=== PATIENT | female | born 1995 | race African-American/Black ===

== ENCOUNTER 2017-11-09 08:54 | Emergency (ER) | payer MEDICAID ==
[2017-11-09] MEDS ORDERED: ACETAMINOPHEN 325 MG TABLET PO ONE (09:09)
[2017-11-09] MEDS ORDERED: IBUPROFEN 600 MG TABLET PO ONE (09:09)
--- NOTE | 2017-11-09 09:09 | ER Document Report ---
HPI - HPI Patient complains to provider of: Fever body aches cough Onset: Other - Saturday Quality of pain: Achy Pain Level: 5 Context: 22-year-old nonsmoker female had a cough since Saturday. Yesterday after school she went to sleep and felt a lot worse with generalized body aches. She woke up with a fever. No shortness of breath or chest pain. Associated symptoms are nasal congestion sore throat. No nausea vomiting or diarrhea. No dysuria. No abdominal pain. Did not get a flu shot. Associated Symptoms: None Exacerbated by: Denies Relieved by: Denies Similar symptoms previously: No Recently seen / treated by doctor: No - ROS ROS below otherwise negative: Yes Systems Reviewed and Negative: Yes All other systems reviewed and negative - REPRODUCTIVE LMP: Current Past Medical History - General Information source: Patient - Social History Smoking Status: Never Smoker Frequency of alcohol use: None Drug Abuse: None Occupation: School and [employer] Lives with: Family Family History: Reviewed & Not Pertinent - Medical History Medical History: Negative Surgical Hx: Negative - Immunizations Immunizations up to date: Yes Vertical Provider Document - CONSTITUTIONAL Agree With Documented VS: Yes Exam Limitations: No Limitations - INFECTION CONTROL TRAVEL OUTSIDE OF THE [place] IN LAST 30 DAYS: No - HEENT HEENT: Normocephalic, Pharyngeal Erythema. negative: Conjuctival Injection, Tympanic Membrane Red, Tympanic Membrane Bulging - NECK Neck: Supple. negative: Lymphadenopathy-Left, Lymphadenopathy-Right - RESPIRATORY Respiratory: No Respiratory Distress, Rhonchi - Mild coarse expiratory bilateral. negative: Rales, Wheezing O2 Sat by Pulse Oximetry: 99 - CARDIOVASCULAR Cardiovascular: Regular Rate, Regular Rhythm - MUSCULOSKELETAL/EXTREMETIES Musculoskeletal/Extremeties: FRANCINE BURNS - NEURO Level of Consciousness: Awake, Alert - DERM Integumentary: Warm, Dry, No Rash Course - Re-evaluation Re-evalutation: 11/09/17 10:16 Prelim x-ray read by me is negative. 11/09/17 13:21 final xray is negative per rad. - Vital Signs Vital signs: Temp Pulse Resp BP Pulse Ox 101.5 F H 98 18 113/88 H 99 11/09/17 08:59 11/09/17 08:59 11/09/17 08:59 11/09/17 08:59 11/09/17 08:59 Discharge - Discharge Clinical Impression: Cough, influenza type illness Fever Qualifiers: Fever type: due to other condition Qualified Code(s): R50.81 - Fever presenting with conditions classified elsewhere Condition: Good Disposition: HOME, SELF-CARE Instructions: Acetaminophen, Anti-Inflammatory Medication ([facility]), Fever ([facility]), Influenza ([facility]) [id number] Additional Instructions: Rest Plenty of fluids Return to the emergency room if worse Tylenol for fever Motrin for pain and body aches Prescriptions: Ibuprofen [Motrin 800 mg Tablet] 800 mg PO Q8HP PRN #30 tablet PRN Reason: Forms: Return to Work
--- NOTE | 2017-11-09 10:29 | RADIOLOGY REPORT (SQ) ---
EXAM DESCRIPTION: CHEST PA/LAT COMPLETED DATE/TIME: 11/09/2017 10:15 am REASON FOR STUDY: Cough and fever COMPARISON: None. EXAM PARAMETERS: NUMBER OF VIEWS: two views TECHNIQUE: Digital Frontal and Lateral radiographic views of the chest acquired. RADIATION DOSE: NA LIMITATIONS: none FINDINGS: LUNGS AND PLEURA: No opacities, masses or pneumothorax. No pleural effusion. MEDIASTINUM AND HILAR STRUCTURES: No masses or contour abnormalities. HEART AND VASCULAR STRUCTURES: Heart normal size. No evidence for failure. BONES: No acute findings. HARDWARE: None in the chest. OTHER: No other significant finding. IMPRESSION: NO SIGNIFICANT RADIOGRAPHIC FINDING IN THE CHEST. TECHNICAL DOCUMENTATION: JOB ID: [id number] [employer]- All Rights Reserved
[2017-11-09 10:58] VITALS: BP 133/74
== END 2017-11-09 10:45 | disposition home or self-care (01) ==
LOC: ER 08:54
DX: R05 Cough (principal); R50.81 Fever presenting with conditions classified elsewhere; M79.1 Myalgia
CPT/HCPCS: 71046; 99283

== ENCOUNTER 2019-05-16 16:56 | Emergency (ER) | payer SELFPAY ==
[2019-05-16] MEDS ORDERED: PYRIDOXINE HCL 50 MG TABLET PO ONE (17:52)
--- NOTE | 2019-05-16 17:53 | ER Document Report ---
ED GI/ - General Chief Complaint: Abdominal Pain Stated Complaint: ABDOMINAL PAIN,NAUSEA Time Seen by Provider: 05/16/19 17:53 Primary Care Provider: [facility] [Provider Group] - Follow up as needed Mode of Arrival: Ambulatory Information source: Patient Notes: 24-year-old female presented to ED for complaint of right pelvic pain and abdominal cramping. She said her last menstrual period was in early March and she had a positive home test. She states she has been nausea and vomited one time today. Pain started yesterday. Patient is alert oriented respirations regular and unlabored speaking in full sentences. States she is in no acute distress at this time she is nontoxic in appearance. TRAVEL OUTSIDE OF THE U.S. IN LAST 30 DAYS: No - HPI Patient complains to provider of: Abdominal pain, Pelvic pain, . No: Vaginal bleeding, Vaginal discharge Timing/Duration: Better Quality of pain: Cramping Severity at maximum: Mild Severity in ED: Mild Pain Level: 1 Location: Pelvis Vaginal bleeding (Compared to normal period): None LMP: Early March : 1 Para: 0 Sexual history: Active Associated symptoms: Nausea - X1, Vomiting, Other - Pelvic pain abdominal pain. denies: Vaginal discharge Exacerbated by: Denies Relieved by: Denies Similar symptoms previously: No Recently seen / treated by doctor: No - Related Data Allergies/Adverse Reactions: No Known Allergies Allergy (Verified 05/16/19 16:58) Past Medical History - General Information source: Patient - Social History Smoking Status: Never Smoker Frequency of alcohol use: None Drug Abuse: Marijuana Occupation: [employer] Family History: Reviewed & Not Pertinent Patient has suicidal ideation: No Patient has homicidal ideation: No - Past Medical History Cardiac Medical History: Reports: None Pulmonary Medical History: Reports: None EENT Medical History: Reports: None Neurological Medical History: Reports: None Endocrine Medical History: Reports: None Renal/ Medical History: Reports: None Malignancy Medical History: Reports: None GI Medical History: Reports: Hx Gastritis Musculoskeletal Medical History: Reports None Skin Medical History: Reports None Psychiatric Medical History: Reports: None Traumatic Medical History: Reports: None Infectious Medical History: Reports: None Surgical Hx: Negative Past Surgical History: Reports: None - Immunizations Immunizations up to date: Yes Review of Systems - Review of Systems Constitutional: No symptoms reported EENT: No symptoms reported Cardiovascular: No symptoms reported Respiratory: No symptoms reported Gastrointestinal: Abdominal pain, Nausea, Vomiting Genitourinary: No symptoms reported Female Genitourinary: Musculoskeletal: No symptoms reported Skin: No symptoms reported Hematologic/Lymphatic: No symptoms reported Neurological/Psychological: No symptoms reported -: Yes All other systems reviewed and negative Physical Exam - Vital signs Vitals: Temp Pulse Resp BP Pulse Ox 97.4 F 72 16 136/77 H 97 05/16/19 17:01 05/16/19 17:01 05/16/19 17:01 05/16/19 17:01 05/16/19 17:01 Interpretation: Normal - General General appearance: Appears well, Alert - HEENT Head: Normocephalic, Atraumatic Eyes: Normal Pupils: PERRL - Respiratory Respiratory status: No respiratory distress Chest status: Nontender Breath sounds: Normal Chest palpation: Normal - Cardiovascular Rhythm: Regular Heart sounds: Normal auscultation Murmur: No - Abdominal Inspection: Normal Distension: No distension Bowel sounds: Normal Tenderness: Tender - Right pelvic Organomegaly: No organomegaly - Back Back: Normal, Nontender - Extremities General upper extremity: Normal inspection, Nontender, Normal color, Normal ROM, Normal temperature General lower extremity: Normal inspection, Nontender, Normal color, Normal ROM, Normal temperature, Normal weight bearing. No: Francisco's sign - Neurological Neuro grossly intact: Yes Cognition: Normal Orientation: AAOx4 [place] Coma Scale Eye Opening: Spontaneous [place] Coma Scale Verbal: Oriented Lauren Coma Scale Motor: Obeys Commands [place] Coma Scale Total: 15 Speech: Normal Motor strength normal: LUE, RUE, LLE, RLE Sensory: Normal - Psychological Associated symptoms: Normal affect, Normal mood - Skin Skin Temperature: Warm Skin Moisture: Dry Skin Color: Normal Course - Re-evaluation Re-evalutation: 05/17/19 01:38 Labs and ultrasound discussed with patient and written report of labs and ultrasound given to patient. Patient was instructed to follow-up with [facility] and prior primary care doctor. Patient verbalized understanding and agreement with treatment plan. Patient was instructed to get vitamin B6 and vitamins [id number] and start them. Patient was discharged home - Vital Signs Vital signs: Temp Pulse Resp BP Pulse Ox 98.4 F 76 18 142/80 H 99 05/16/19 19:00 05/16/19 19:00 05/16/19 19:00 05/16/19 19:00 05/16/19 19:00 - Laboratory Result Diagrams: 05/16/19 18:02 05/16/19 18:02 Laboratory results interpreted by me: 05/16/19 05/16/19 05/16/19 18:02 18:02 18:02 RDW 14.4 H Sodium 136.6 L Beta HCG, Quant 59757.00 H Urine Ascorbic Acid 40 H - Diagnostic Test Radiology reviewed: Image reviewed, Reports reviewed Discharge - Discharge Clinical Impression: Pelvic pain affecting in first trimester, antepartum, Nausea and vomiting during Condition: Stable Disposition: HOME, SELF-CARE Instructions: Family Physicians / Practices, [facility] [place] Additional Instructions: Pelvic Pain in Lower abdominal pain during can have many causes. We look for serious causes such as appendicitis, tubal , miscarriage, placental separation, or urinary tract infection. Less serious causes of pain include corpus luteum cyst (ovarian cyst of ) or stretching of the pelvic tissues by the enlarging uterus. Sometimes the pain comes from the bowels. If no specific cause for the pain is found, we attribute the pain to stretching of the uterine ligaments. This is called "round ligament strain." It is not dangerous. Just rest until the pain goes away. Call us or come back for reexamination if any problems occur, such as: (1) Pain that becomes more severe, steady, or becomes concentrated in one sp ecific area. Also, pain that is more severe with movement or coughing. (2) Vomiting that persists or becomes more frequent. (3) Blood in the vomitus, urine, or bowel movements. Blood in the stool may have a tarry or black appearance. (4) Shaking chills or fever greater than 100 degrees. (5) The abdomen becomes more distended or swollen. (6) Bowel movements cease. (7) Vaginal bleeding. Acetaminophen Acetaminophen may be taken for pain relief or fever control. It's much safer than aspirin, offering a wider range of "safe" dosages. It is safe during . Some brand names are Tylenol, Panadol, Datril, Anacin 3, Tempra, and Liquiprin. Acetaminophen can be repeated every four hours. The following are maximum recommended dosages: WEIGHT Dose Drops Elixir Chewable(80mg) (LBS.) drprs=droppers tsp=teaspoon 6 40 mg .4 ml (1/2) 6-11 80 mg .8 ml (full) 1/2 tsp 1 tab 12-16 120 mg 1 1/2 drprs 3/4 tsp 1 1/2 tabs 17-23 160 mg 2 drprs 1 tsp 2 tabs 24-30 240 mg 3 drprs 1 1/2 tsp 3 tabs 30-35 320 mg 2 tsp 4 tabs 36-41 360 mg 2 1/4 tsp 4 1/2 tabs 42-47 400 mg 2 1/2 tsp 5 tabs 48-53 480 mg 3 tsp 6 tabs 54-59 520 mg 3 1/4 tsp 6 1/2 tabs 60-64 560 mg 3 1/2 tsp 7 tabs 65-70 600 mg 3 3/4 tsp 7 1/2 tabs 71-76 640 mg 4 tsp 8 tabs 77-82 720 mg 4 1/2 tsp 9 tabs 83-88 800 mg 5 tsp 10 tabs >89 pounds or adults 650 mg to 900 mg Acetaminophen can be repeated every four hours. Maximum daily dose not to exceed 4000 mg. These maximum recommended dosages are slightly higher than the dosages written on the product container, but these dosages are very safe and well below the toxic dosage for acetaminophen. Please use vitamin B6 and Unisom for your induced nausea. Please star t your vitamins right away. Schedule an appointment with your primary care doctor and or an [facility] to get started on care. Please be sure that you eat a full balanced diet and drink plenty of fluids. As I have discussed with you you are 10 weeks 6 days according to ultrasound y our heart tone was 169 and I did show you a picture of your fetus. FOLLOW-UP CARE: If you have been referred to a physician for follow-up care, call the physicians office for an appointment as you were instructed or within the next two days. If you experience worsening or a significant change in your symptoms, notify the physician immediately or return to the Emergency Department at any time for re-evaluation. Forms: Elevated Blood Pressure, Smoking Cessation Education, Return to Work Referrals: [facility] [Provider Group] - Follow up as needed
[2019-05-16] MEDS ORDERED: PYRIDOXINE HCL INJ 100 MG/1 ML VIAL IM ONE (18:07)
[2019-05-16 18:22] LABS: ABSOLUTE BASOPHILS # (AUTO) 0.1 10^3/uL (0.0-0.2); ABSOLUTE LYMPHOCYTES (AUTO) 1.5 10^3/uL (0.5-4.7); ABSOLUTE MONOCYTES (AUTO) 0.8 10^3/uL (0.1-1.4); ABSOLUTE NEUT (AUTO) 6.7 10^3/uL (1.7-8.2); BASOPHILS % (AUTO) 0.6 % (0-2); EOSINOPHILS % (AUTO) 0.2 % (0-6); HEMOGLOBIN 14.5 g/dL (12.0-15.5); LYMPHOCYTES % (AUTO) 16.3 % (13-45); MEAN CORPUSCULAR HEMOGLOBIN 29.4 pg (27.0-33.4); MEAN CORPUSCULAR HGB CONC 33.8 g/dL (32.0-36.0); MEAN CORPUSCULAR VOLUME 87 fl (80-97); MONOCYTES % (AUTO) 8.9 % (3-13); PLATELET COUNT 202 10^3/uL (150-450); RED BLOOD COUNT 4.94 10^6/uL (3.72-5.28); RED CELL DISTRIBUTION WIDTH 14.4 % (11.5-14.0); TOTAL CELLS COUNTED % (AUTO) 100 %; WHITE BLOOD COUNT 9.1 10^3/uL (4.0-10.5)
[2019-05-16 18:23] LABS: APPEARANCE,URINE SLIGHTLY-CLOUDY; BILIRUBIN,URINE NEGATIVE (NEGATIVE); COLOR,URINE YELLOW; GLUCOSE, URINE NEGATIVE (NEGATIVE); KETONES,URINE NEGATIVE (NEGATIVE); LEUKOCYTE ESTERASE,URINE NEGATIVE (NEGATIVE); NITRITE,URINE NEGATIVE (NEGATIVE); PROTEIN,URINE NEGATIVE (NEGATIVE); URINE SPECIFIC GRAVITY 1.025; UROBILINOGEN,URINE NEGATIVE mg/dL (<2.0)
[2019-05-16] MEDS ORDERED: PYRIDOXINE HCL INJ 100 MG/1 ML VIAL ONE (18:24)
[2019-05-16 18:36] LABS: ALANINE AMINOTRANSFERASE 12 U/L (9-52); ALKALINE PHOSPHATASE 62 U/L (38-126); ANION GAP 9 (5-19); ASPARTATE AMINO TRANSFERASE 14 U/L (14-36); BILIRUBIN,DIRECT 0.2 mg/dL (0.0-0.4); BILIRUBIN,TOTAL 0.2 mg/dL (0.2-1.3); BLOOD UREA NITROGEN 11 mg/dL (7-20); CALCIUM 9.9 mg/dL (8.4-10.2); CARBON DIOXIDE 25 mmol/L (22-30); CHLORIDE 103 mmol/L (98-107); GLUCOSE 92 mg/dL (75-110); POTASSIUM 4.8 mmol/L (3.6-5.0); TOTAL PROTEIN 7.4 g/dL (6.3-8.2)
--- NOTE | 2019-05-16 19:09 | RADIOLOGY REPORT (SQ) ---
EXAM DESCRIPTION: U/S OB TRANSVAGINAL W/O DOP COMPLETED DATE/TIME: 05/16/2019 6:59 pm REASON FOR STUDY: pelvic pain COMPARISON: None. TECHNIQUE: Transvaginal static and realtime grayscale images acquired of the pelvis. Additional [place] cted spectral and color Doppler images recorded. All images stored on PACs. bHCG: Pending. CLINICAL DATES: 7 weeks 5 days LIMITATIONS: None. FINDINGS: FETUS: Single Living intrauterine . ULTRASOUND EGA: 10 weeks 6 days ULTRASOUND JABIER: 12/06/2019 EFW: Not applicable less than 20 weeks. CRL: 3.9 cm FHR: 169 beats per minute. SURVEY: Too early to assess. AMNIOTIC FLUID: Adequate amount. PLACENTA: Not yet developed due to early gestation. SUBCHORIONIC BLEED: No SIZE OF BLEED: Not applicable. UTERUS: No masses. No anomalies. CERVICAL LENGTH: 3.1 cm Closed. RIGHT ADNEXA: Normal ovary with normal vascular flow. No adnexal free fluid. No adnexal masses. LEFT ADNEXA: Normal ovary with normal vascular flow. No adnexal free fluid. 2 cm corpus luteum. FREE FLUID: None. OTHER: No other significant finding. IMPRESSION: LIVING INTRAUTERINE . EGA 10 weeks 6 days Trimester of : First trimester - 0 to 13 weeks. TECHNICAL DOCUMENTATION: JOB ID: [id number] [employer]- All Rights Reserved rev-03/07 Reading location - IP/workstation name: [email or web address]
[2019-05-16 19:59] VITALS: BP 142/80
== END 2019-05-16 19:55 | disposition home or self-care (01) ==
LOC: ER 16:56
DX: O26.891 Other specified pregnancy related conditions, first trimester (principal); R10.2 Pelvic and perineal pain; O21.9 Vomiting of pregnancy, unspecified; O99.321 Drug use complicating pregnancy, first trimester; F12.10 Cannabis abuse, uncomplicated; Z3A.01 Less than 8 weeks gestation of pregnancy; Z87.19 Personal history of other diseases of the digestive system
CPT/HCPCS: 99284; 96372; 36415; 87086; 84702; 85025; 80053; 81001; 76817; J3415

== ENCOUNTER 2019-11-30 19:44 | Emergency (ER) | payer MEDICAID ==
[2019-11-30] MEDS ORDERED: ACETAMINOPHEN 325 MG TABLET PO ONE (20:20)
[2019-11-30] MEDS ORDERED: RINGERS SOLUTION,LACTATED 1,000 ML IV ONE (20:21)
--- NOTE | 2019-11-30 20:22 | ER Document Report ---
ED Medical Screen (RME) - General Stated Complaint: FLU SYMPTOMS Time Seen by Provider: 11/30/19 20:14 Mode of Arrival: Ambulatory Information source: Patient Notes: Patient presents complaining of cough body aches for the past 2 days. Patient is currently 39 weeks G1, P0. Patient denies any abdominal pain vaginal bleeding or urinary symptoms. Patient does complain of lower back pain and decreased movement at this time. Patient was taking livw-ctq-[id number] cold medicine earlier today. Patient denies any complications during the thus far. I have greeted and performed a rapid initial assessment of this patient. A comprehensive ED assessment and evaluation of the patient, analysis of test results and completion of the medical decision making process will be conducted by additional ED providers. TRAVEL OUTSIDE OF THE U.S. IN LAST 30 DAYS: No - Related Data Allergies/Adverse Reactions: No Known Allergies Allergy (Verified 11/30/19 20:14) Past Medical History Renal/ Medical History: Denies: Hx Peritoneal Dialysis GI Medical History: Reports: Hx Gastritis - Immunizations Immunizations up to date: Yes Physical Exam - Vital signs Vitals: Temp Pulse Resp BP Pulse Ox 100.2 F 135 H 24 H 132/83 H 97 11/30/19 19:56 11/30/19 19:56 11/30/19 19:56 11/30/19 19:56 11/30/19 19:56 - Respiratory Respiratory status: Tachypnea - Cardiovascular Rhythm: Tachycardia Heart sounds: S1 appreciated, S2 appreciated Course - Vital Signs Vital signs: Temp Pulse Resp BP Pulse Ox 100.2 F 135 H 24 H 132/83 H 97 11/30/19 19:56 11/30/19 19:56 11/30/19 19:56 11/30/19 19:56 11/30/19 19:56
--- NOTE | 2019-11-30 21:03 | RADIOLOGY REPORT (SQ) ---
EXAM DESCRIPTION: XR CHEST 2 VIEWS COMPLETED DATE/TME: 11/30/2019 20:20 CLINICAL HISTORY: 24 years, Female, cough, fever COMPARISON: November 09, 2017 NUMBER OF VIEWS: 2 TECHNIQUE: LIMITATIONS: None. FINDINGS: Lungs grossly clear. Cardiomediastinal silhouette is low normal. Visualized bones are unremarkable IMPRESSION: No active intrathoracic disease copyright 2010 [employer]- All Rights Reserved
[2019-11-30 21:47] LABS: VENOUS BLOOD BASE EXCESS -4.3 mmol/L; VENOUS BLOOD HCO3 19.9 mmol/L (20-32); VENOUS BLOOD PCO2 34.2 mmHg (35-63); VENOUS BLOOD PH 7.38 (7.30-7.42)
[2019-11-30 21:49] LABS: HEMATOCRIT 37.6 % (36.0-47.0); HEMOGLOBIN 12.9 g/dL (12.0-15.5); MEAN CORPUSCULAR HGB CONC 34.4 g/dL (32.0-36.0); MEAN CORPUSCULAR VOLUME 84 fl (80-97); PLATELET COUNT 139 10^3/uL (150-450); RED BLOOD COUNT 4.46 10^6/uL (3.72-5.28); RED CELL DISTRIBUTION WIDTH 13.7 % (11.5-14.0); WHITE BLOOD COUNT 8.9 10^3/uL (4.0-10.5)
[2019-11-30 21:55] LABS: PROTHROMBIN TIME 13.2 SEC (11.4-15.4)
[2019-11-30 22:01] LABS: ALBUMIN 3.5 g/dL (3.5-5.0); ALKALINE PHOSPHATASE 190 U/L (38-126); ANION GAP 13 (5-19); ASPARTATE AMINO TRANSFERASE 34 U/L (14-36); BILIRUBIN,DIRECT 0.2 mg/dL (0.0-0.4); BILIRUBIN,TOTAL 0.4 mg/dL (0.2-1.3); BLOOD UREA NITROGEN 4 mg/dL (7-20); CALCIUM 9.2 mg/dL (8.4-10.2); CARBON DIOXIDE 17 mmol/L (22-30); CHLORIDE 104 mmol/L (98-107); GLUCOSE 101 mg/dL (75-110); POTASSIUM 3.5 mmol/L (3.6-5.0); TOTAL PROTEIN 7.2 g/dL (6.3-8.2)
[2019-11-30] MEDS ORDERED: NORMAL SALINE 1000 ML 1,000 ML IV ONE (22:07)
[2019-11-30 22:09] LABS: A TYPE INFLUENZA AG NEGATIVE (NEGATIVE); B INFLUENZA AG NEGATIVE (NEGATIVE)
[2019-11-30 22:10] LABS: ABSOLUTE LYMPHOCYTES# (MANUAL) 0.4 10^3/uL (0.5-4.7); ABSOLUTE MONOCYTES # (MANUAL) 0.6 10^3/uL (0.1-1.4); BAND NEUTROPHILS % (MANUAL) 6 % (3-5); BASOPHILS % (MANUAL) 0 % (0-2); EOSINOPHILS % (MANUAL) 2 % (0-6); LYMPHOCYTES % (MANUAL) 5 % (13-45); MONOCYTES % (MANUAL) 7 % (3-13); SEGMENTED NEUTROPHILS % (MAN) 80 % (42-78); TOTAL CELLS COUNTED 100
[2019-11-30 22:11] LABS: PLATELET COMMENT ADEQUATE; RBC MORPHOLOGY COMMENT NORMO-CYTIC/CHROMIC
[2019-11-30 22:49] VITALS: BP 119/43
[2019-11-30] MEDS ORDERED: CEFTRIAXONE 1 GM/D5W RTU 1 GM/50 ML RTUPB IV ONE (22:51)
--- NOTE | 2019-11-30 22:52 | ER Document Report ---
ED General - General Chief Complaint: Flu Symptoms Stated Complaint: FLU SYMPTOMS Time Seen by Provider: 11/30/19 20:14 Primary Care Provider: OMID MEDRANO MD [Primary Care Provider] - Follow up as needed Mode of Arrival: Ambulatory TRAVEL OUTSIDE OF THE [place]. IN LAST 30 DAYS: No - Related Data Allergies/Adverse Reactions: No Known Allergies Allergy (Verified 11/30/19 20:14) Past Medical History - General Information source: Patient - Social History Smoking Status: Never Smoker Family History: Reviewed & Not Pertinent Patient has suicidal ideation: No Patient has homicidal ideation: No Renal/ Medical History: Denies: Hx Peritoneal Dialysis GI Medical History: Reports: Hx Gastritis - Immunizations Immunizations up to date: Yes Physical Exam - Vital signs Vitals: Temp Pulse Resp BP Pulse Ox 100.2 F 135 H 24 H 132/83 H 97 11/30/19 19:56 11/30/19 19:56 11/30/19 19:56 11/30/19 19:56 11/30/19 19:56 Course - Re-evaluation Re-evalutation: 11/30/19 23:01 The patient came to the ER with viral like symptoms of a cough, congestion, sore throat, fevers, chills, body aches. Patient tested negative for the Flu. Patient arrived tachycardic, dehydrated, and acidotic but this improved with IV fluids. Heart Tones were initially elevated but these came down with fluids as well. Labor and Delivery reviewed the patient's Heart Monitoring and they requested the patient be discharged from the ER and come up to to Labor and Delivery for monitoring. The patient produced a urine in the ER but the results were not done before the patient was discharged to Labor and Delivery so the OB team was told to follow up these results. - Vital Signs Vital signs: Temp Pulse Resp BP Pulse Ox 98.9 F 135 H 23 H 119/43 L 99 11/30/19 22:42 11/30/19 19:56 11/30/19 22:47 11/30/19 22:47 11/30/19 22:47 - Laboratory Result Diagrams: 11/30/19 21:27 11/30/19 21:27 Laboratory results interpreted by me: 11/30/19 11/30/19 11/30/19 21:27 21:27 21:27 Plt Count 139 L Seg Neuts % (Manual) 80 H Band Neutrophils % 6 H Lymphocytes % (Manual) 5 L Abs Lymphs (Manual) 0.4 L VBG pCO2 34.2 L VBG HCO3 19.9 L Sodium 133.5 L Potassium 3.5 L Carbon Dioxide 17 L BUN 4 L Lactic Acid Alkaline Phosphatase 190 H 11/30/19 21:27 Plt Count Seg Neuts % (Manual) Band Neutrophils % Lymphocytes % (Manual) Abs Lymphs (Manual) VBG pCO2 VBG HCO3 Sodium Potassium Carbon Dioxide BUN Lactic Acid 2.6 H Alkaline Phosphatase - Diagnostic Test Radiology reviewed: Image reviewed, Reports reviewed - EKG Interpretation by [place] EKG shows normal: Sinus rhythm, [place], Intervals, QRS Complexes Rate: Tachycardia Rhythm: NSR Additional EKG results interpreted by co: 11/30/19 23:08 T wave inversions in V1-V3 and and III and aVF Discharge - Discharge Clinical Impression: Dehydration URI (upper respiratory infection) Qualifiers: URI type: unspecified viral URI Qualified Code(s): J06.9 - Acute upper respiratory infection, unspecified Condition: Fair Disposition: LABOR CHECK Additional Instructions: Go directly to labor and delivery for further treatment and care. Referrals: OMID MEDRANO MD [Primary Care Provider] - Follow up as needed
[2019-11-30 23:18] LABS: APPEARANCE,URINE CLEAR; BILIRUBIN,URINE NEGATIVE (NEGATIVE); COLOR,URINE YELLOW; GLUCOSE, URINE NEGATIVE (NEGATIVE); KETONES,URINE 20 mg/dL (NEGATIVE); LEUKOCYTE ESTERASE,URINE NEGATIVE (NEGATIVE); NITRITE,URINE NEGATIVE (NEGATIVE); PROTEIN,URINE NEGATIVE (NEGATIVE); URINE SPECIFIC GRAVITY 1.005; UROBILINOGEN,URINE NEGATIVE mg/dL (<2.0)
--- NOTE | 2019-12-01 07:08 | EKG REPORT ---
SEVERITY:- ABNORMAL ECG - SINUS TACHYCARDIA NONSPECIFIC T ABNORMALITIES, INFERIOR AND ANTERIOR LEADS : Confirmed by: Osiel Nunez MD 01-Dec-2019 07:08:23
== END 2019-11-30 23:07 | disposition admitted as inpatient to this hospital (09) ==
LOC: ER 19:44
DX: O26.93 Pregnancy related conditions, unspecified, third trimester (principal); J06.9 Acute upper respiratory infection, unspecified; E86.0 Dehydration; R53.1 Weakness; Z3A.39 39 weeks gestation of pregnancy
CPT/HCPCS: 93005; 36415; 87040; 83605; 85025; 85610; 80053; 81001; 82803; 87804; 87150 ×26; 71046; 93010; J3490; J7030; J7120; 87077

== ENCOUNTER 2019-11-30 22:56 | Inpatient (IN) | payer MEDICAID ==
[2019-11-30] MEDS ORDERED: CEFTRIAXONE INJ 1000 MG VIAL ONE (23:26)
--- NOTE | 2019-11-30 23:47 | Admission Physical ---
Datetime Report Generated by CPN: 11/30/2019 23:47 CURRENT ADMISSION Chief Complaint: Uterine Contractions; Evaluation; Other Chief Complaint Other: FHR decelerations in ER while evaluation for SOB/fever/flu symptoms Indication for Induction: Not Applicable Admit Impression : Term, Intrauterine ; No Active Labor; Intact Membranes Admit Plan: Admit to Unit; Observation/Evaluation ALLERGIES Medication Allergies: No Medication Allergies: No Known Allergies (11/30/2019) Latex: No Latex Allergies OBSTETRICAL HISTORY EDC: 12/06/2019 00:00 : 1 Para: 0 Term: 0 : 0 SAB: 0 IAB: 0 Ectopic: 0 Livin Cesareans: 0 VBACs: 0 Multiple Births: 0 Gestational Diabetes: No Rh Sensitization: No Incompetent Cervix: No ALTAGRACIA: No Infertility: No ART Treatment: No Uterine Anomaly: No IUGR: No Hx Previous C/S: No Macrosomia: No Hx Loss/Stillborn: No PIH: No Hx : No Placenta Previa/Abruption: No Depression/PP Depression: No PTL/PROM: No Post Hemorrhage: No Obstetrical History Comments: G1- current SEE RECORDS Alcohol: No Marijuana : No Cocaine: No Other Illicit Drugs: No Cigarettes: Never Smoker. [id number] MEDICAL HISTORY Diabetes: No Blood Transfusion: No Pulmonary Disease (Asthma, TB): Yes Breast Disease: No Hypertension: No Order Entry Specialist Surgery: No Heart Disease: No Hosp/Surgery: No Autoimmune Disorder: No Anesthetic Complications: No Kidney Disease: No Abnormal Pap Smear: No Neuro/Epilepsy: No Psychiatric Disorders: No Other Medical Diseases: No Hepatitis/Liver Disease: No Significant Family History: No Varicosities/Phlebitis: No Trauma/Violence : No Thyroid Dysfunction: No Medical History Comments: asthma INFECTIOUS HISTORY Gonorrhea: No Genital Herpes: No Chlamydia: No Tuberculosis: No Syphilis: No Hepatitis: No HIV/AIDS Exposure: No Rash or Viral Illness: No HPV: No PHYSICAL EXAM General: Normal HEENT: Normal Neurologic: Normal Thyroid: Deferred Heart: Normal Lungs: Normal Breast: Deferred Back: Normal Abdomen: Normal Genitourinary Exam: Normal Extremities: Normal DTRs: Normal Pelvic Type: Adequate Vital Signs: Reviewed VAGINAL EXAM Dilatation: 1 Effacement: 25 Station: -3 Contraction Comments: q 4-7 minutes MEMBRANES Membranes: Intact FETUS A EGA: 39.1 Monitoring: External US FHR- Baseline: 175 Variability: Moderate 6-25bpm Accelerations: Absent Decelerations: None FHR Category: Category II Presentation: Vertex Admit Comment: 24yo at 39+1ega presents with limited care and late to care but dated by US at [facility] at 10+6ega. JABIER 12/06/2019. Started PNC in Jul at [facility]. GBS negative. H/o Asthma as child - no meds since childhood. She presented to ER with fever/chills/SOB and sick contacts with people at home with flu on tamiflu. She reports that she was not taking any meds but began to feel sick on Saturday. She is tachypneic and tachycardic and during evaluation in ER was undergoing NST with tachycardia and noted contractions (patient not feeling) but late decelerations with each contraction. She was brought to labor and delivery for recussitation in utero. Dr. arias consulted for fever/SOB/Respiratory complications. Lactic acid was elevated. Blood cultures obtained and urine culture. ROcephin and tylenol ordered. Admit for observation and section if needed for NRFHTs PLANS FOR LABOR AND DELIVERY Benefit of Breast Feed Discussed: Yes INFORMED CONSENT Informed Consent Obtained: Vaginal Delivery; Section Delivery; Risks, Benefits and Alternatives Discussed Signature: with User ID: David
[2019-11-30 23:55] LABS: RBCS (WET MOUNT) FEW RBCS SEEN; T.VAGINALIS (WET MOUNT) NO TRICHOMONAS SEEN; WBCS (WET MOUNT) RARE WBCS SEEN; YEAST (WET MOUNT) NO YEAST SEEN
[2019-11-30] MEDS ORDERED: CEFTRIAXONE 1 GM/D5W RTU 1 GM/50 ML RTUPB IV ONE (23:59)
[2019-11-30] MEDS ORDERED: RINGERS SOLUTION,LACTATED 1,000 ML IV ONE (23:59)
[2019-12-01] LABS: APPEARANCE,URINE CLEAR; BILIRUBIN,URINE NEGATIVE (NEGATIVE); COLOR,URINE STRAW; GLUCOSE, URINE NEGATIVE (NEGATIVE); KETONES,URINE NEGATIVE (NEGATIVE); LEUKOCYTE ESTERASE,URINE NEGATIVE (NEGATIVE); NITRITE,URINE NEGATIVE (NEGATIVE); PROTEIN,URINE NEGATIVE (NEGATIVE); URINE SPECIFIC GRAVITY 1.001; UROBILINOGEN,URINE NEGATIVE mg/dL (<2.0)
[2019-12-01 00:17] LABS: URINE AMPHETAMINES SCREEN NEGATIVE; URINE BARBITURATES SCREEN NEGATIVE; URINE BENZODIAZEPINES SCREEN NEGATIVE; URINE COCAINE SCREEN NEGATIVE; URINE MARIJUANA (THC) SCREEN NEGATIVE; URINE METHADONE SCREEN NEGATIVE; URINE PHENCYCLIDINE SCREEN NEGATIVE
--- NOTE | 2019-12-01 01:12 | PDOC CONSULTATION ---
Consultation Consult Date: 11/30/19 Attending physician:: OMID MEDRANO Provider Consulted: JAVIER LUNA Consult reason:: Upper respiratory tract infection, mild metabolic acidosis History of Present Illness Admission Date/PCP: 11/30/19 23:31 OMID MEDRANO MD Patient complains of: Fever History of Present Illness: LINETTE BANERJEE is a 24 year old female who presented to the emergency room with an acute fever. She admits a 3-day history of a nonproductive cough cough, nasal congestion, chest congestion, dyspnea worsened by exertion, sore throat, malaise and ague, but she experienced subjective fever and chills today so she took Tylenol and came to the emergency room. She is 39-0 weeks (G1, P0) and has been exposed to several family members who tested positive for influenza. Her upper respiratory symptoms noted above have been accompanied by a lower backache and have been associated with decreased movement over the last 24 hours. The patient admits prior similar symptoms with upper respiratory tract infections in the past. She has not noted any additional accompanying or associated signs and symptoms. She has not noted any aggravating or a meliorating factors for her fever. In the emergency room she was found to be mildly febrile with a temperature of 100.2 F and was also noted to have a minimal metabolic acidosis with complete respiratory compensation. She was also noted to have a slightly elevated lactic acid. Her chest x-ray showed no acute disease process, her UA was negative with the exception of ketones present and her CBC was unremarkable. Her influenza A and B screenings were negative. Dr. Medrano has admitted the patient to observation status and requested a hospitalist consultation for medical evaluation and treatment of her upper respiratory symptoms. Past Medical History Cardiac Medical History: Denies: Coronary Artery Disease, Hyperlipidema, Hypertension Pulmonary Medical History: Reports: Asthma Denies: Chronic Obstructive Pulmonary Disease (COPD) EENT Medical History: Denies: Cataracts, Nose - Nasal polyp Neurological Medical History: Denies: Migraine, Multiple Sclerosis, Seizures Endocrine Medical History: Denies: Diabetes Mellitus Type 1, Gestational Diabetes, Hyperthyroidism, Hypothyroidism Renal/ Medical History: Denies: Chronic Kidney Disease, Nephrolithiasis Malignancy Medical History: Reports: None GI Medical History: Denies: Cirrhosis, Hepatitis, Peptic Ulcer Disease Musculoskeltal Medical History: Denies: Arthritis, Gout Skin Medical History: Denies: Eczema, Psoriasis Psychiatric Medical History: Denies: Alcohol Dependency, Substance Abuse, Tobacco Dependency Traumatic Medical History: Reports: None Hematology: Denies: Anemia, Bleeding Tendencies Infectious Medical History: Reports: None Past Surgical History Past Surgical History: Reports: Adenoidectomy, Tonsillectomy, Other - Dental surgery: [place] teeth extractions Social History Information Source: Patient Lives with: Parents Smoking Status: Never Smoker Electronic Cigarette use?: No Frequency of Alcohol Use: None Hx Recreational Drug Use: No Drugs: None Hx Prescription Drug Abuse: No - Advance Directive Resuscitation Status: Full Code Surrogate healthcare decision maker:: Laury Hammond Family History Family History: CAD, DM, Hypertension, Malignancy Parental Family History Reviewed: Yes Children Family History Reviewed: No Sibling(s) Family History Reviewed.: Yes Medication/Allergy Home Medications: Sulfamethoxazole/Trimethoprim [Bactrim Ds Tablet] 1 each PO BID #20 tablet 10/03/14 Ibuprofen [Motrin 800 mg Tablet] 800 mg PO Q8HP PRN #30 tablet 11/09/17 Allergies/Adverse Reactions: No Known Allergies Allergy (Verified 11/30/19 20:14) Review of Systems Constitutional: PRESENT: as per HPI, chills, fever(s), other - Malaise and ague Eyes: ABSENT: visual disturbances, other - Eye pain Ears: ABSENT: hearing changes, other - Ear pain Nose, Mouth, and Throat: PRESENT: as per HPI, sore throat. ABSENT: headache(s), mouth pain Cardiovascular: PRESENT: dyspnea on exertion, other - Chest congestion. ABSENT: chest pain, palpitations Respiratory: PRESENT: as per HPI, cough, dyspnea. ABSENT: sputum Gastrointestinal: ABSENT: abdominal pain, constipation, diarrhea, nausea, vomiting Genitourinary: ABSENT: difficulty urinating, dysuria, hematuria Musculoskeletal: PRESENT: as per HPI, back pain. ABSENT: joint swelling Integumentary: ABSENT: pruritus, rash Neurological: ABSENT: confusion, convulsions, focal weakness, memory loss, syncope Psychiatric: ABSENT: anxiety, depression Endocrine: ABSENT: cold intolerance, heat intolerance, polydipsia, polyphagia, polyuria Hematologic/Lymphatic: ABSENT: easy bleeding, easy bruising Allergic/Immunologic: ABSENT: seasonal rhinorrhea Physical Exam General appearance: PRESENT: no acute distress, cooperative Head exam: PRESENT: atraumatic, normocephalic Eye exam: PRESENT: conjunctiva pink. ABSENT: conjunctival injection, scleral icterus Ear exam: PRESENT: normal external ear exam. ABSENT: bleeding, drainage Mouth exam: PRESENT: dry mucosa, neck supple Neck exam: ABSENT: thyromegaly, tracheal deviation Respiratory exam: PRESENT: clear to auscultation felipa, symmetrical, unlabored Cardiovascular exam: PRESENT: RRR. ABSENT: clicks, gallop, rubs Pulses: PRESENT: normal radial pulses, normal dorsalis pedis pul Vascular exam: PRESENT: normal capillary refill. ABSENT: pallor GI/Abdominal exam: PRESENT: normal bowel sounds, organolmegaly - Term size uterus with palpable movement, soft. ABSENT: tenderness Rectal exam: PRESENT: deferred Extremities exam: ABSENT: joint swelling, pedal edema Musculoskeletal exam: ABSENT: deformity, dislocation Neurological exam: PRESENT: alert, oriented to person, oriented to place, oriented to time, oriented to situation, CN II-XII grossly intact. ABSENT: motor sensory deficit Psychiatric exam: PRESENT: appropriate affect, normal mood Skin exam: PRESENT: dry, intact, warm. ABSENT: jaundice, rash, urticaria Assessment and Plan - Diagnosis (1) Acute upper respiratory infection Is this a current diagnosis for this admission?: Yes (2) Metabolic acidosis Is this a current diagnosis for this admission?: Yes (3) Elevated lactic acid level Is this a current diagnosis for this admission?: Yes (4) Term Is this a current diagnosis for this admission?: Yes - Plan Summary Summary: Recommendations for treatment the patient would include continuing monitoring of the fetus and mother over the next 12 to 24 hours. Additionally the patient should receive IV fluids and I will order D5 normal saline with 20 mEq of KCl per liter at 167 mL/h x 2 L. She should receive routine supportive and symptomatic cares and these will be ordered. Her laboratory evaluation will be repeated in the morning with a CBC, metabolic profile and magnesium level. - Time Time Spent with patient: 15-24 minutes - Inpatient Certification Based on my medical assessment, after consideration of the patient's comorbidities, presenting symptoms, or acuity I expect that the services needed warrant INPATIENT care.: No I certify that my determination is in accordance with my understanding of Medicare's requirements for reasonable and necessary INPATIENT services [42 CFR 412.3e].: No Medical Necessity: Need For IV Fluids, Need For Continuous Telemetry Monitoring
[2019-12-01 01:27] LABS: CHLAM PCR NOT DETECTED (NOT DETECT)
[2019-12-01] MEDS ORDERED: ACETAMINOPHEN 325 MG TABLET ONE ×4 (01:43→21:17)
[2019-12-01] MEDS: ACETAMINOPHEN 325 MG TABLET PO PRN ×4 (01:44→21:27)
[2019-12-01 08:11] LABS: ABSOLUTE LYMPHOCYTES (AUTO) 0.6 10^3/uL (0.5-4.7); ABSOLUTE MONOCYTES (AUTO) 0.9 10^3/uL (0.1-1.4); ABSOLUTE NEUT (AUTO) 3.8 10^3/uL (1.7-8.2); BASOPHILS % (AUTO) 0.6 % (0-2); EOSINOPHILS % (AUTO) 0.1 % (0-6); HEMATOCRIT 36.4 % (36.0-47.0); HEMOGLOBIN 12.6 g/dL (12.0-15.5); LYMPHOCYTES % (AUTO) 10.6 % (13-45); MEAN CORPUSCULAR HEMOGLOBIN 29.2 pg (27.0-33.4); MEAN CORPUSCULAR HGB CONC 34.5 g/dL (32.0-36.0); MEAN CORPUSCULAR VOLUME 85 fl (80-97); MONOCYTES % (AUTO) 17.1 % (3-13); PLATELET COUNT 130 10^3/uL (150-450); RED CELL DISTRIBUTION WIDTH 13.8 % (11.5-14.0); SEGMENTED NEUTROPHILS % (AUTO) 71.6 % (42-78); TOTAL CELLS COUNTED % (AUTO) 100 %; WHITE BLOOD COUNT 5.3 10^3/uL (4.0-10.5)
[2019-12-01 08:32] LABS: ALBUMIN 3.1 g/dL (3.5-5.0); ALKALINE PHOSPHATASE 180 U/L (38-126); ANION GAP 9 (5-19); ASPARTATE AMINO TRANSFERASE 32 U/L (14-36); BILIRUBIN,DIRECT 0.2 mg/dL (0.0-0.4); BILIRUBIN,TOTAL 0.4 mg/dL (0.2-1.3); BLOOD UREA NITROGEN 4 mg/dL (7-20); CALCIUM 9.1 mg/dL (8.4-10.2); CARBON DIOXIDE 21 mmol/L (22-30); CHLORIDE 107 mmol/L (98-107); GLUCOSE 90 mg/dL (75-110); POTASSIUM 3.8 mmol/L (3.6-5.0); TOTAL PROTEIN 6.5 g/dL (6.3-8.2)
[2019-12-01] MEDS: OSELTAMIVIR PHOSPHATE 75 MG CAPSULE PO SCH ×2 (10:08→18:16)
[2019-12-01] MEDS: CEFTRIAXONE 1 GM/D5W RTU 1 GM/50 ML RTUPB IV SCH ×2 (10:08→21:27)
[2019-12-01] MEDS: ZOLPIDEM TARTRATE 5 MG TABLET PO SCH (13:23)
[2019-12-01] MEDS: RINGERS SOLUTION,LACTATED 1,000 ML IV PRN ×2 (15:28→20:09)
[2019-12-01] MEDS ORDERED: OXYTOCIN/NORMAL SALINE 20 UNIT/1,000 ML RTUINJ IV PRN (17:19)
[2019-12-01] MEDS ORDERED: DINOPROSTONE 10 MG VAGINAL INSERT.SR PV PRN (17:30)
--- NOTE | 2019-12-01 18:21 | RADIOLOGY REPORT (SQ) ---
EXAM DESCRIPTION: U/S PROFILE W/O STRESS COMPLETED DATE/TIME: 12/01/2019 6:11 pm REASON FOR STUDY: Nonreactive NST COMPARISON: None. TECHNIQUE: Limited chris-scale realtime and static images of the fetus to measure specified parameter s. LIMITATIONS: None. FINDINGS: HEART RATE: 165 beats per minute. VINICIO: 14.2 cm. BREATHING MOVEMENT: 2 points. MOVEMENT: 2 points. POSTURE AND TONE: 2 points. QUALITATIVE VINICIO: 2 points. OTHER: 39 weeks 4 days. IMPRESSION: BIOPHYSICAL PROFILE: 05/28. Trimester of : Third - 28 weeks to delivery COMMENT: BREATHING MOVEMENTS: 2 POINTS: PRESENT 0 POINTS: ABSENT MOTION: 2 POINTS: PRESENT 0 POINTS: ABSENT TONE: 2 POINTS: PRESENT 0 POINTS: ABSENT AMNIOTIC FLUID VOLUME: 2 POINTS: LARGEST POCKET GREATER THAN 2 CM DEPTH. 0 POINTS: NO POCKET OF 2 CM. TECHNICAL DOCUMENTATION: JOB ID: [id number] 2010 [employer]- All Rights Reserved Reading location - IP/workstation name: [email or web address]
--- NOTE | 2019-12-01 18:25 | PDOC PROGRESS REPORT ---
Subjective Progress Note for:: 12/01/19 Subjective:: The patient is a 24-year-old female with no significant past medical history, currently 39 weeks EGA with her first who was admitted to the [facility] last night for upper respiratory infection, tachycardia, and mild metabolic acidosis. Of note, the patient did have multiple family members with confirmed influenza and so has been started on Tamiflu by primary team. Patient was seen on morning rounds, she was found to be resting in bed, comfortably, on room air. She reports that she is feeling significantly better today. She does have a low-grade temperature of 99 this morning. She does continue to have fatigue and generalized body aches, though decreased from yesterday. She admits to slight orthopnea, however, believes this to be related to her and not worse than her baseline respiratory status over the last several weeks. She is feeling quite optimistic today and is hopeful that [facility] will allow her to be discharged shortly. Otherwise, she denies headache, dizziness, chills, chest pain, palpitations, dyspnea, cough, abdominal pain, nausea vomiting and diarrhea. She does admit to slight rhinorrhea and a sore throat related to postnasal drip. She has no other questions or concerns. No concerns per nursing. Reason For Visit: Physical Exam Vital Signs: Intake & Output 11/30/19 12/01/19 12/02/19 06:59 06:59 06:59 Weight 244.8 kg 111.039 kg General appearance: PRESENT: no acute distress, cooperative, well-developed, well-nourished Head exam: PRESENT: atraumatic, normocephalic Eye exam: PRESENT: conjunctiva pink, EOMI, PERRLA. ABSENT: scleral icterus Ear exam: PRESENT: normal external ear exam Mouth exam: PRESENT: moist, tongue midline Respiratory exam: PRESENT: clear to auscultation felipa, symmetrical, unlabored. ABSENT: rales, rhonchi, wheezes Cardiovascular exam: PRESENT: RRR, +S1, +S2. ABSENT: diastolic murmur, rubs, systolic murmur Vascular exam: PRESENT: normal capillary refill GI/Abdominal exam: PRESENT: normal bowel sounds, soft Extremities exam: PRESENT: full ROM. ABSENT: calf tenderness, clubbing, pedal edema Musculoskeletal exam: PRESENT: ambulatory Neurological exam: PRESENT: alert, awake, oriented to person, oriented to place, oriented to time, oriented to situation, CN II-XII grossly intact. ABSENT: motor sensory deficit Psychiatric exam: PRESENT: appropriate affect, normal mood. ABSENT: homicidal ideation, suicidal ideation Skin exam: PRESENT: dry, intact, warm. ABSENT: cyanosis, rash Results Laboratory Results: 12/01/19 07:51 12/01/19 07:51 11/30/19 11/30/19 12/01/19 23:15 23:30 07:51 WBC 5.3 RBC 4.30 Hgb 12.6 Hct 36.4 MCV 85 MCH 29.2 MCHC 34.5 RDW 13.8 Plt Count 130 L Seg Neutrophils % 71.6 Sodium Potassium Chloride Carbon Dioxide Anion Gap BUN Creatinine Est GFR ( Amer) Glucose Lactic Acid Calcium Magnesium Total Bilirubin AST Alkaline Phosphatase Total Protein Albumin Urine Color STRAW Urine Appearance CLEAR Urine pH 7.0 Ur Specific [place] 1.001 Urine Protein NEGATIVE Urine Glucose (UA) NEGATIVE Urine Ketones NEGATIVE Urine Blood SMALL H Urine Nitrite NEGATIVE Ur Leukocyte Esterase NEGATIVE Blood Type A POSITIVE Antibody Screen NEGATIVE 12/01/19 12/01/19 07:51 07:51 WBC RBC Hgb Hct MCV MCH MCHC RDW Plt Count Seg Neutrophils % Sodium 136.5 L Potassium 3.8 Chloride 107 Carbon Dioxide 21 L Anion Gap 9 BUN 4 L Creatinine 0.55 Est GFR ( Amer) > 60 Glucose 90 Lactic Acid 1.2 Calcium 9.1 Magnesium 1.6 Total Bilirubin 0.4 AST 32 Alkaline Phosphatase 180 H Total Protein 6.5 Albumin 3.1 L Urine Color Urine Appearance Urine pH Ur Specific [place] Urine Protein Urine Glucose (UA) Urine Ketones Urine Blood Urine Nitrite Ur Leukocyte Esterase Blood Type Antibody Screen Assessment and Plan - Diagnosis (1) Influenza Is this a current diagnosis for this admission?: Yes Plan: Patient was admitted with upper respiratory infectious symptoms, fever, and multiple family members with confirmed influenza. She has been started on Tamiflu by primary team. Continue supportive/symptom management. (2) Acute upper respiratory infection Is this a current diagnosis for this admission?: Yes Plan: As above. (3) Metabolic acidosis Is this a current diagnosis for this admission?: Yes Plan: Likely secondary to dehydration. Bicarb improved from 17-21. Continue IV fluids. We will defer remaining management to the [facility] service. (4) Term Is this a current diagnosis for this admission?: Yes Plan: Per primary team. - Plan Summary Summary: The patient is medically stable for discharge from the hospitalist perspective. We will sign off at this time. Please re-consult if we can be of any further assistance. - Time Time Spent with patient: 15-24 minutes Medications reviewed and adjusted accordingly: Yes Anticipated discharge: Home
[2019-12-01] MEDS ORDERED: DINOPROSTONE 10 MG VAGINAL INSERT.SR ONE (19:59)
[2019-12-02] MEDS ORDERED: OXYTOCIN 10 UNIT/ML VIAL ONE (01:34)
[2019-12-02] MEDS ORDERED: OXYTOCIN/NORMAL SALINE 20 UNIT/1,000 ML RTUINJ ONE (01:35)
[2019-12-02] MEDS ORDERED: LIDOCAINE 1% INJ-PF (10 MG/ML) 30 ML SDV ONE (01:35)
[2019-12-02] MEDS ORDERED: MISOPROSTOL 0.2 MG TABLET ONE (01:35)
[2019-12-02] MEDS: RINGERS SOLUTION,LACTATED 1,000 ML IV PRN ×2 (01:59→09:31)
[2019-12-02] MEDS ORDERED: ZOLPIDEM TARTRATE 5 MG TABLET ONE (02:49)
[2019-12-02] MEDS: ZOLPIDEM TARTRATE 5 MG TABLET PO SCH ×2 (02:52→23:49)
[2019-12-02] MEDS ORDERED: ONDANSETRON HCL INJ/PF 4 MG/2 ML SDV ONE (05:25)
[2019-12-02] MEDS ORDERED: ONDANSETRON HCL INJ/PF 4 MG/2 ML SDV IV ONE (05:30)
[2019-12-02] MEDS ORDERED: MORPHINE SULFATE 10 MG/ML INJ IV ONE (08:18)
[2019-12-02] MEDS ORDERED: PROMETHAZINE HCL INJ 25 MG/1 ML VIAL IV ONE (08:19)
[2019-12-02] MEDS ORDERED: MORPHINE SULFATE 10 MG/ML INJ ONE (08:20)
[2019-12-02] MEDS ORDERED: PROMETHAZINE HCL INJ 25 MG/1 ML VIAL ONE (08:20)
[2019-12-02] MEDS ORDERED: EPHEDRINE SULFATE INJ 50 MG/1 ML AMPULE ONE (08:59)
[2019-12-02] MEDS ORDERED: BUPIVACAINE HCL 0.25 % INJ/PF (2.5 MG/1 ML) 30 ML VIAL ONE (09:00)
[2019-12-02] MEDS ORDERED: FENTANYL/BUPIVACAINE/NS/PF 300 MCG/150 ML RTUINJ EPI ONE (09:00)
[2019-12-02] MEDS: OSELTAMIVIR PHOSPHATE 75 MG CAPSULE PO SCH ×2 (09:29→20:07)
[2019-12-02] MEDS: CEFTRIAXONE 1 GM/D5W RTU 1 GM/50 ML RTUPB IV SCH ×2 (09:29→22:18)
[2019-12-02] MEDS ORDERED: OXYTOCIN/NORMAL SALINE 20 UNIT/1,000 ML RTUINJ IV PRN ×2 (13:39→16:35)
[2019-12-02] MEDS ORDERED: DIPHENHYDRAMINE HCL 25 MG CAPSULE PO PRN (16:35)
[2019-12-02] MEDS ORDERED: ACETAMINOPHEN 650 MG SUPP.RECT PR PRN (16:35)
[2019-12-02] MEDS ORDERED: PROMETHAZINE HCL INJ 25 MG/1 ML VIAL IV PRN (16:35)
[2019-12-02] MEDS ORDERED: GLYCERIN/WITCH HAZEL LEAF 1 EACH MED..WIPE TP PRN (16:35)
[2019-12-02] MEDS ORDERED: ACETAMINOPHEN WITH CODEINE #3 TABLET PO PRN ×2 (16:35)
[2019-12-02] MEDS ORDERED: MAGNESIUM HYDROXIDE SUSP 30 ML UDCUP PO PRN (16:35)
[2019-12-02] MEDS ORDERED: MEASLES,MUMPS&RUBELLA VACC/PF 0.5 ML VIAL SUBCUT PRN (16:35)
[2019-12-02] MEDS ORDERED: ZOLPIDEM TARTRATE 5 MG TABLET PO PRN (16:35)
[2019-12-02] MEDS ORDERED: DIPH/PERTUSS(ACELL)/TETANUS VAC/PF 0.5 ML SYR (>=10YO) IM PRN (16:35)
[2019-12-02] MEDS ORDERED: BENZOCAINE/MENTHOL AEROSOL SPRAY 56 ML TOP PRN (16:35)
[2019-12-02] MEDS ORDERED: PROMETHAZINE HCL 25 MG SUPP.RECT PR PRN (16:35)
[2019-12-02] MEDS ORDERED: DIBUCAINE 1% OINTMENT 28 GM TP PRN (16:35)
[2019-12-02] MEDS ORDERED: NA PHOS,M-B/NA PHOS,DI-BA (ADULT) 133 ML ENEMA PR PRN (16:35)
[2019-12-02] MEDS ORDERED: PROMETHAZINE HCL 25 MG TABLET PO PRN (16:35)
[2019-12-02] MEDS ORDERED: PSEUDOEPHEDRINE HCL 30 MG TABLET PO PRN (16:35)
[2019-12-02] MEDS ORDERED: METHYLERGONOVINE MALEATE 0.2 MG TABLET ONE (18:39)
[2019-12-02] MEDS ORDERED: INFLUENZA QUAD (6MOS+) 2019-20 VAC 0.5 ML SYR IM ONE (18:51)
[2019-12-02] MEDS: FERROUS SULFATE 325 MG TABLET PO SCH (18:59)
[2019-12-02] MEDS: DOCUSATE SODIUM 100 MG CAPSULE PO SCH (18:59)
[2019-12-02] MEDS: IBUPROFEN 800 MG TABLET PO SCH ×2 (19:07→22:17)
[2019-12-02] MEDS: METHYLERGONOVINE MALEATE 0.2 MG TABLET PO SCH ×2 (19:13→23:52)
[2019-12-02] MEDS: FAMOTIDINE 20 MG TABLET PO SCH (22:15)
[2019-12-03] MEDS: METHYLERGONOVINE MALEATE 0.2 MG TABLET PO SCH ×3 (05:26→17:56)
[2019-12-03] MEDS: IBUPROFEN 800 MG TABLET PO SCH ×3 (05:26→22:10)
[2019-12-03 07:54] LABS: HEMATOCRIT 32.9 % (36.0-47.0); HEMOGLOBIN 11.3 g/dL (12.0-15.5); MEAN CORPUSCULAR HGB CONC 34.4 g/dL (32.0-36.0); MEAN CORPUSCULAR VOLUME 84 fl (80-97); PLATELET COUNT 126 10^3/uL (150-450); WHITE BLOOD COUNT 6.5 10^3/uL (4.0-10.5)
--- NOTE | 2019-12-03 09:19 | PDOC PROGRESS REPORT ---
Subjective-OB Progress Note for:: 12/03/19 Subjective: Doing well, coughing, , ambulating, voiding, eating well Physical Exam (OB) Vital Signs: Temp Pulse Resp BP Pulse Ox 97.8 F 74 18 128/71 H 98 12/03/19 07:45 12/03/19 07:45 12/03/19 07:45 12/03/19 07:45 12/03/19 07:45 Intake & Output 12/02/19 12/03/19 12/04/19 06:59 06:59 06:59 Intake Total 1414 1991 Balance 1414 1991 Weight 111.039 kg 108 kg - PIH/Pre-Eclampsia DTR's: 1 + Clonus: Negative Headache: Absent Epigastric Pain: No Visual Changes: No - Lochia Lochia Amount: Small 10-25 ml Lochia Color: Rubra/Red - Abdomen Description: Soft, Round Fundal Description: Firm, Midline Fundal Height: u/u - u/2 Objective-Diagnostic Laboratory: 12/03/19 07:23 12/01/19 07:51 12/03/19 07:23 WBC 6.5 RBC 3.90 Hgb 11.3 L Hct 32.9 L MCV 84 MCH 29.0 MCHC 34.4 RDW 14.0 Plt Count 126 L Assessment and Plan(PN) - Assessment and Plan (1) Vaginal delivery Is this a current diagnosis for this admission?: Yes (2) Acute upper respiratory infection Is this a current diagnosis for this admission?: Yes (3) Elevated lactic acid level Is this a current diagnosis for this admission?: Yes (4) Term Is this a current diagnosis for this admission?: Yes (5) Influenza Is this a current diagnosis for this admission?: Yes (6) Metabolic acidosis Is this a current diagnosis for this admission?: Yes - Time Spent with Patient Time with patient: Less than 15 minutes Medications reviewed and adjusted accordingly: Yes - Disposition Anticipated Discharge: Home Within: within 24 hours
[2019-12-03] MEDS: FAMOTIDINE 20 MG TABLET PO SCH ×2 (09:53→22:10)
[2019-12-03] MEDS: CEFTRIAXONE 1 GM/D5W RTU 1 GM/50 ML RTUPB IV SCH ×2 (09:53→22:12)
[2019-12-03] MEDS: SENNOSIDES/DOCUSATE 8.6-50 MG 1 EACH TABLET PO SCH (09:54)
[2019-12-03] MEDS: DOCUSATE SODIUM 100 MG CAPSULE PO SCH ×2 (09:54→17:57)
[2019-12-03] MEDS: OSELTAMIVIR PHOSPHATE 75 MG CAPSULE PO SCH ×2 (09:54→17:56)
[2019-12-03] MEDS: FERROUS SULFATE 325 MG TABLET PO SCH ×2 (09:54→17:57)
[2019-12-03] MEDS: PRENATAL VITAMIN W DHA CAPSULE PO SCH (09:54)
[2019-12-03 10:46] LABS: PLATELET COUNT 125 10^3/uL (150-450)
[2019-12-03] MEDS: ZOLPIDEM TARTRATE 5 MG TABLET PO SCH (22:10)
[2019-12-04] MEDS: METHYLERGONOVINE MALEATE 0.2 MG TABLET PO SCH (00:03)
[2019-12-04] MEDS: IBUPROFEN 800 MG TABLET PO SCH (05:20)
[2019-12-04] MEDS: SENNOSIDES/DOCUSATE 8.6-50 MG 1 EACH TABLET PO SCH (10:23)
[2019-12-04] MEDS: PRENATAL VITAMIN W DHA CAPSULE PO SCH (10:23)
[2019-12-04] MEDS: FAMOTIDINE 20 MG TABLET PO SCH (10:23)
[2019-12-04] MEDS: FERROUS SULFATE 325 MG TABLET PO SCH (10:23)
[2019-12-04] MEDS: OSELTAMIVIR PHOSPHATE 75 MG CAPSULE PO SCH (10:23)
[2019-12-04] MEDS: DOCUSATE SODIUM 100 MG CAPSULE PO SCH (10:24)
--- NOTE | 2019-12-04 10:49 | PDOC DISCHARGE SUMMARY ---
Impression - Admit/DC Date/PCP Admission Date/Primary Care Provider: 11/30/19 23:31 OMID MEDRANO MD Discharge Date: 12/04/19 - PP Day #2, doing well today, UOB, voiding, denies fever, chills, malaise. s/p IV antibiotics and Tamiflu for Upper Resp. infection. A+, rubella Immune, - Discharge Diagnosis (1) Normal course Is this a current diagnosis for this admission?: Yes (2) Acute upper respiratory infection Is this a current diagnosis for this admission?: Yes (3) Influenza Is this a current diagnosis for this admission?: Yes (4) Metabolic acidosis Is this a current diagnosis for this admission?: Yes (5) Term Is this a current diagnosis for this admission?: Yes (6) Vaginal delivery Is this a current diagnosis for this admission?: Yes - Assessment Summary: The patient is medically stable for discharge from the hospitalist perspective. We will sign off at this time. Please re-consult if we can be of any further assistance. - Additional Information Resuscitation Status: Full Code Discharge Diet: As Tolerated, Regular Discharge Activity: Activity As Tolerated, No Lifting Over 10 Pounds, Pelvic Rest Referrals: [facility] [Provider Group] Prescriptions: Fluconazole [Diflucan] 150 mg PO Q3DAYS #2 tablet Ibuprofen [Motrin 800 mg Tablet] 800 mg PO Q8 #60 tablet Home Medications: Prenat 115/Iron Fum/Folic/Dss [ 19 Tablet] 1 tab PO DAILY 12/01/19 Fluconazole [Diflucan] 150 mg PO Q3DAYS #2 tablet 12/04/19 Ibuprofen [Motrin 800 mg Tablet] 800 mg PO Q8 #60 tablet 12/04/19 HPI Reason(s) for Admission: Induction of Labor, Other Procedures: Ultrasound Intrapartum Procedure(s): Spontaneous Vaginal Delivery Complication(s): Laceration-Perineal Laceration-Degree: 2nd Hospital Course Hospital Course: improved since admission Results Laboratory Results: WBC 6.5 10^3/uL (4.0-10.5) 12/03/19 07:23 RBC 3.90 10^6/uL (3.72-5.28) 12/03/19 07:23 Hgb 11.3 g/dL (12.0-15.5) L 12/03/19 07:23 Hct 32.9 % (36.0-47.0) L 12/03/19 07:23 MCV 84 fl (80-97) 12/03/19 07:23 MCH 29.0 pg (27.0-33.4) 12/03/19 07:23 MCHC 34.4 g/dL (32.0-36.0) 12/03/19 07:23 RDW 14.0 % (11.5-14.0) 12/03/19 07:23 Plt Count 125 10^3/uL (150-450) L 12/03/19 09:55 Lymph % (Auto) 10.6 % (13-45) L 12/01/19 07:51 [place] % (Auto) 17.1 % (3-13) H 12/01/19 07:51 Eos % (Auto) 0.1 % (0-6) 12/01/19 07:51 Baso % (Auto) 0.6 % (0-2) 12/01/19 07:51 Absolute Neuts (auto) 3.8 10^3/uL (1.7-8.2) 12/01/19 07:51 Absolute Lymphs (auto) 0.6 10^3/uL (0.5-4.7) 12/01/19 07:51 Absolute Monos (auto) 0.9 10^3/uL (0.1-1.4) 12/01/19 07:51 Absolute Eos (auto) 0.0 10^3/uL (0.0-0.6) 12/01/19 07:51 Absolute Basos (auto) 0.0 10^3/uL (0.0-0.2) 12/01/19 07:51 Seg Neutrophils % 71.6 % (42-78) 12/01/19 07:51 Sodium 136.5 mmol/L (137-145) L 12/01/19 07:51 Potassium 3.8 mmol/L (3.6-5.0) 12/01/19 07:51 Chloride 107 mmol/L (98-107) 12/01/19 07:51 Carbon Dioxide 21 mmol/L (22-30) L 12/01/19 07:51 Anion Gap 9 (5-19) 12/01/19 07:51 BUN 4 mg/dL (7-20) L 12/01/19 07:51 Creatinine 0.55 mg/dL (0.52-1.25) 12/01/19 07:51 Est GFR ( Amer) > 60 (>60) 12/01/19 07:51 Est GFR (MDRD) Non-Af > 60 (>60) 12/01/19 07:51 Glucose 90 mg/dL (75-110) 12/01/19 07:51 Lactic Acid 1.2 mmol/L (0.7-2.1) 12/01/19 07:51 Calcium 9.1 mg/dL (8.4-10.2) 12/01/19 07:51 Magnesium 1.6 mg/dL (1.6-2.3) 12/01/19 07:51 Total Bilirubin 0.4 mg/dL (0.2-1.3) 12/01/19 07:51 Direct Bilirubin 0.2 mg/dL (0.0-0.4) 12/01/19 07:51 Neonat Total Bilirubin Not Reportable 12/01/19 07:51 Neonat Direct Bilirubin Not Reportable 12/01/19 07:51 Neonat Indirect Bili Not Reportable 12/01/19 07:51 AST 32 U/L (14-36) 12/01/19 07:51 ALT 20 U/L (<35) 12/01/19 07:51 Alkaline Phosphatase 180 U/L (38-126) H 12/01/19 07:51 Total Protein 6.5 g/dL (6.3-8.2) 12/01/19 07:51 Albumin 3.1 g/dL (3.5-5.0) L 12/01/19 07:51 Urine Color STRAW 11/30/19 23:30 Urine Appearance CLEAR 11/30/19 23:30 Urine pH 7.0 (5.0-9.0) 11/30/19 23:30 Ur Specific [place] 1.001 11/30/19 23:30 Urine Protein NEGATIVE mg/dL (NEGATIVE) 11/30/19 23:30 Urine Glucose (UA) NEGATIVE mg/dL (NEGATIVE) 11/30/19 23:30 Urine Ketones NEGATIVE mg/dL (NEGATIVE) 11/30/19 23:30 Urine Blood SMALL (NEGATIVE) H 11/30/19 23:30 Urine Nitrite NEGATIVE (NEGATIVE) 11/30/19 23:30 Urine Bilirubin NEGATIVE (NEGATIVE) 11/30/19 23:30 Urine Urobilinogen NEGATIVE mg/dL (<2.0) 11/30/19 23:30 Ur Leukocyte Esterase NEGATIVE (NEGATIVE) 11/30/19 23:30 Urine Ascorbic Acid NEGATIVE (NEGATIVE) 11/30/19 23:30 Membranes Rupture POSITIVE (NEGATIVE) H 12/01/19 19:24 Trichomonas (Wet Prep) NO TRICHOMONAS SEEN 11/30/19 23:30 Vaginal WBC RARE WBCS SEEN 11/30/19 23:30 Vaginal RBC FEW RBCS SEEN 11/30/19 23:30 Vaginal Yeast NO YEAST SEEN 11/30/19 23:30 Urine Opiates Screen NEGATIVE 11/30/19 23:30 Urine Methadone Screen NEGATIVE 11/30/19 23:30 Ur Barbiturates Screen NEGATIVE 11/30/19 23:30 Ur Phencyclidine Scrn NEGATIVE 11/30/19 23:30 Ur Amphetamines Screen NEGATIVE 11/30/19 23:30 U Benzodiazepines Scrn NEGATIVE 11/30/19 23:30 Urine Cocaine Screen NEGATIVE 11/30/19 23:30 U Marijuana (THC) Screen NEGATIVE 11/30/19 23:30 RPR NONREACTIVE (NONREACTIVE) 11/30/19 23:15 Chlamydia DNA (PCR) NOT DETECTED (NOT DETECT) 11/30/19 23:30 N.gonorrhoeae DNA (PCR) NOT DETECTED (NOT DETECT) 11/30/19 23:30 Blood Type A POSITIVE 11/30/19 23:15 Antibody Screen NEGATIVE 11/30/19 23:15 Impressions: Stress Test 12/01/19 15:10 IMPRESSION: BIOPHYSICAL PROFILE: 05/28. Trimester of : Third - 28 weeks to delivery Plan Health Concerns: fever precautions Plan of Treatment: d/c to home, f/up with [facility] in 4 wks for PP check or if fever returns Time Spent: Less than 30 Minutes
[2019-12-04 11:00] VITALS: BP 126/79
--- NOTE | 2019-12-08 08:50 | Delivery Summary ---
Del Sum A-C Datetime Report Generated by CPN: 12/08/2019 08:49 DELIVERY PERSONNEL DELIVERY PERSONNEL: [id number] Delivery Doctor:: Nikia Hogan CNM Labor and Delivery Nurse:: Kaylyn Hutton RN Nursery Nurse:: Vanna Mckinney, [place] Ski Tow Operator/BASTING MARKER: Maria Elena Gates, ST Ski Tow Operator/BASTING MARKER: Essence Rascon [place], STAFF DEVELOPMENT NURSE MATERNAL INFORMATION Delivery Anesthesia: Epidural Medications After Delivery: Pitocin Bolus-Please Comment; Pitocin Drip 20 Units/1000ml NSS Maternal Complications: Maternal Fever; Other Complication Details: VIRAL SYNDROME Provider Comments: DIRECT OA, VIABLE MALE INFANT WITH SPONTANEOUS CRY. CORD DOUBLE CLAMPED AND CUT AT 1.5 MINUTES. NURSERY PRESENT FOR DELIVERY. SPONTANEOUS PLACENTA INTACT WITH 3VC. SECOND DEGREE LACERATION REPAIRED. MOTHER AND INFANT STABLE IN L_D #1 LABOR SUMMARY EDC: 12/06/2019 00:00 No. Babies in Womb: 1 Attempted: No Labor Anesthesia: Epidural LABOR INFORMATION Reason for Induction: Other Reason for Induction- Other: TACHYCARDIA Onset of Labor: 12/02/2019 07:00 Complete Dilatation: 12/02/2019 11:21 Cervical Ripening Agents: Cervidil Oxytocin: Augmentation Group B Beta Strep: Negative Antibiotics # of Doses: 4 Antibiotics Time of Last Dose: 929 Name of Antibiotic Given: ROCEPHIN Steroids Given: None Reason Steroids Not Administered: Not Applicable MEMBRANES Membranes Rupture Method: Spontaneous Rupture of Membranes: 12/01/2019 16:20 Length of Rupture (hr): 22.50 Amniotic Fluid Color: Clear Amniotic Fluid Amount: Small Amniotic Fluid Odor: Normal STAGES OF LABOR Stage 1 hr: 4 Stage 1 min: 21 Stage 2 hr: 3 Stage 2 min: 29 Stage 3 hr: 0 Stage 3 min: 5 Total Time in Labor hr: 7 Total Time in Labor min: 55 VAGINAL DELIVERY Episiotomy: None Laceration #1: Perineal Laceration Extension #1: Second Degree Laceration Repair: Yes Laceration Repair Note: second degree laceration repaired under epidural anesthesia Sponge Count Correct: N/A Sharps Count Correct: N/A BABY A INFORMATION Infant Delivery Date/Time: 12/02/2019 14:50 Method of Delivery: Vaginal Method of Delivery: Vaginal Nurse Controlled Delivery: No Born in Route : No : N/A Forceps: N/A Vacuum Extraction: N/A Shoulder Dystocia : No PRESENTATION/POSITION BABY A Presentation: Cephalic Presentation: Cephalic Presentation: Cephalic Presentation: Cephalic Cephalic Presentation: Vertex Vertex Position: Right Occipital Anterior Breech Presentation: N/A PLACENTA INFORMATION BABY A Placenta Delivery Time : 12/02/2019 14:55 Placenta Method of Delivery: Spontaneous Placenta Method of Delivery: Spontaneous Placenta Status: Delivered SCORES BABY A Heart Rate 1 min: >100 bpm Resp Effort 1 min: Good Cry Reflex Irritability 1 min: Cough or Sneeze or Pulls Away Muscle Tone 1 min: Active Motion Color 1 min: Body [place], Extremities Blue Resuscitation Effort 1 min: Tactile Stimulation SCORE 1 MIN: 9 Heart Rate 5 min: >100 bpm Resp Effort 5 min: Good Cry Reflex Irritability 5 min: Cough or Sneeze or Pulls Away Muscle Tone 5 min: Active Motion Color 5 min: Body [place], Extremities Blue Resuscitation Effort 5 min: Tactile Stimulation SCORE 5 MIN: 9 INFORMATION BABY A Gestational Age at Delivery: 39.3 Gestational Status: Full Term- 39- 40.6 Weeks Infant Outcome : Liveborn Infant Condition : Stable Infant Sex: Male Infant Sex: Male IDENTIFICATION BABY A Infant Verification Date/Time: 12/02/2019 15:04 ID Band Number: [id number] Mother's Name Verified: Yes RN Verifying : KIMBERLY HUTTON RN Additional Verifying Personnel: ST SOH[facility] CORD INFORMATION BABY A No. Cord Vessels: 3 Nuchal Cord : N/A Cord Blood Taken: Yes-For Storage (Mom's Blood type +) Suction: None ASSESSMENT BABY A Infant Complications: Extended Tachycardia; Multiple Late Decels; Other Infant Complications- Other: MORPHINE _ PHENERGAN @ 0828 Physical Findings at Delivery: Caput Succedaneum; Molding of the Head Respirations: Appears Normal Skin to Skin: Yes Grinder And Honer Operator Automatic/ALS Called : No Care By: Larry MCKINNEY RN Transferred To: Remains with Mother BABY B INFORMATION : N/A SIGNATURES Assignment: Mary Hilton MD Signature: with User ID: [email or web address] : with User ID: [email or web address] : I was personally available for consultation and serving as supervising physician for the [facility].
== END 2019-12-04 14:07 | disposition home or self-care (01) | DRG 806 ==
LOC: LC 22:56 → LR 23:31 → OBSVTOIN 23:31 → 2S 12-02 17:56
PROVIDERS: ADMIT Obstetrics & Gynecology; ATTEND Obstetrics & Gynecology
PROC: 10E0XZZ Delivery of Products of Conception, External Approach (ICD-10-PCS; principal; 2019-12-02)
PROC: 0KQM0ZZ Repair Perineum Muscle, Open Approach (ICD-10-PCS; 2019-12-02)
PROC: 3E0234Z Introduction of Serum, Toxoid and Vaccine into Muscle, Percutaneous Approach (ICD-10-PCS; 2019-12-04)
DX: O99.52 Diseases of the respiratory system complicating childbirth (principal); O68 Labor and delivery complicated by abnormality of fetal acid-base balance; Z37.0 Single live birth; J11.1 Influenza due to unidentified influenza virus with other respiratory manifestations; O76 Abnormality in fetal heart rate and rhythm complicating labor and delivery; O70.1 Second degree perineal laceration during delivery; Z3A.39 39 weeks gestation of pregnancy; Z23 Encounter for immunization
CPT/HCPCS: 36415; 76819; 80053; 80307; 81005; 83605; 83735; 84112; 85025; 85027; 85049; 86592; 86850; 86900; 86901; 87086; 87210; 87491; 87591; 88307; 90686; 90715; J0696; J2270; J2405; J2550; J2590; J3010; J3490